=== PATIENT | male | born 1975 ===

== ENCOUNTER 2018-08-22 07:30 | Inpatient (IN) | payer OTHER ==
[2018-08-01 09:01] VITALS: BMI 29.1
[2018-08-22] MEDS ORDERED: Absorbable Gelatin Sponge Size 100 ONE (08:17)
[2018-08-22] MEDS ORDERED: Vancomycin 1 g Inj ONE (08:17)
[2018-08-22] MEDS ORDERED: ceFAZolin IV 1 gm in Dextrose 2 GM/100 ML BAG IVPB ONE (08:17)
[2018-08-22] MEDS ORDERED: Lidocaine/Epinephrine 1% 1:100000 10 ML IJ ONE ×2 (08:18→11:05)
[2018-08-22] MEDS ORDERED: Thrombin Topical 5,000 Int Units Spray Kit ONE (08:18)
[2018-08-22] MEDS ORDERED: Bacitracin 50,000 UNIT in Sodium Chloride 0.9% Irrig 1,000 ML IR SCH (08:30)
[2018-08-22] MEDS ORDERED: Propofol 10 mg/ml 1,000 MG/100 ML VIAL ONE ×2 (09:43→12:02)
[2018-08-22] MEDS ORDERED: Propofol 10 mg/ml Inj (20 ML) ONE (10:15)
[2018-08-22] MEDS ORDERED: Midazolam 2 MG/2 ML VIAL ONE (10:15)
[2018-08-22] MEDS ORDERED: Succinylcholine Chloride 20 mg/ml Syr (5 ml) IV ONE (10:16)
[2018-08-22] MEDS ORDERED: White Petrolatum/Mineral Oil Ophth Oint(3.5 gm) ONE (10:40)
[2018-08-22] MEDS ORDERED: ceFAZolin IV 1 gm in Dextrose 1 GM/50 ML BAG IVPB ONE (11:12)
[2018-08-22] MEDS: Bupivacaine Liposomal Inj 20 ml INFIL ONE ×2 (13:40→14:00)
[2018-08-22] MEDS: Bupivacaine 0.5% Inj(30mL) IJ ONE ×2 (13:41→14:00)
[2018-08-22] MEDS ORDERED: Bacitracin 500 Units/gm Oint Foilpak UD ONE (14:12)
[2018-08-22] MEDS ORDERED: HYDROmorphone 0.5 mg/0.5 ml ISec IVP PRN (14:54)
[2018-08-22] MEDS ORDERED: Morphine Monoject Barrel PCA 1mg/ml IV PRN (14:56)
[2018-08-22] MEDS: HYDROmorphone 0.5 mg/0.5 ml ISec IVP PRN ×2 (16:00→16:25)
[2018-08-22] MEDS: Potassium Ch 20mEq in D5-1/2NS 1,000 ML IV SCH (18:30)
[2018-08-23] MEDS: Potassium Ch 20mEq in D5-1/2NS 1,000 ML IV SCH ×3 (02:26→22:48)
--- NOTE | 2018-08-23 06:05 | OP ---
PROCEDURE DATE: 08/22/2018 PREOPERATIVE DIAGNOSIS: Lumbar disk derangements with chronic low back pain. POSTOPERATIVE DIAGNOSIS: Lumbar disk derangements with chronic low back pain with bilateral L5 spondylolisthesis and gross instability. PROCEDURE: L4 through S1 decompression, fixation and fusion. SURGEON: Oscar Gaffney MD CO-SURGEON: Natalio Saba MD ANESTHESIA: General endotracheal. ESTIMATED BLOOD LOSS: 1000 mL, 500 mL returned via Cell Saver. COMPLICATIONS: None. JUSTIFICATION: The patient is status post an accident, ever since when he is suffering with severe low back pain. The patient denied any pain radiating to his lower extremities. Imaging workup with MRI documented severe collapse of the L5-S1 disk. There was a mild disk derangement but with bilateral foraminal stenosis at L4-L5. The patient failed conservative treatment. He was offered the possibility of operative intervention via decompression, fixation, and fusion. The nature of this procedure, the rationale behind it, alternatives, potential risks and complications, realistic chance of success and recovery time were discussed with him at length. All his questions were answered. He fully understood all the above and elected to proceed as offered. DESCRIPTION OF PROCEDURE: The patient was taken to the operating room, hooked up to neurophysiological monitoring, carefully intubated and anesthetized, placed on the OR table on a Jaden frame in a prone position. Care was taken to protect the face, eyes, endotracheal tube, and all bony prominences. The entire low back region was first scrubbed with acetone and scrubbed, painted, and draped in usual sterile manner. Incision localized with lateral fluoroscopy and made overlying the spinous process of L3 down to the sacrum. Bovie cautery was used to incise the fascia, strip the paraspinal muscles off the spinous process and lamina of L4, L5, and the sacrum. Almost immediately, we encountered surprisingly the L5 lamina was essentially floating. There was a gross instability when dissecting out the L5 pars heading towards the transverse process. We immediately noted complete fracture through both pars bilaterally. This was not recognized on the MR imaging. The patient never actually had a CAT scan. In any case, the exposure was widened out laterally bilaterally to expose the L4-L5 transverse process bilaterally, and the sacral ala. The patient really had copious amounts of bleeding, fairly abnormal for this exposure. Bleeding was controlled with Bovie and bipolar cautery and thrombinated powdered Gelfoam. At this point, bone harvestation was performed. A 5-gauge trocar was inserted directly into the right superior posterior iliac crest. Approximately 120 mL of marrow was aspirated. This was then spun down to obtain the bone marrow mesenchymal cells which were then later used in the bone fusion. The decompression was begun by removing the L5 lamina with a Leksell rongeur. As indicated, this was disconnected and floating. Care was taken to protect the thecal sac at all times. We then removed the inferior two-thirds of the L4 lamina predominately with the Leksell, the high-speed drill, and various size Kerrison. The decompression was then widened out laterally bilaterally to perform a generous medial facetectomy of the L4-L5 level and again at L5-S1, we essentially lifted the medial facet which was disconnected directly off the canal after the and after the ligament to lift it up with a rongeur, this was done bilaterally. Again, bleeding was controlled throughout with bipolar cautery and thrombinated Gelfoam. At this point, we recognized that undoubtedly overwhelmingly the majority of the patient's pain was coming from the L5-S1 instability, and although we had entertained the ideas of doing a diskectomy and interbody fusion at L4-L5, we felt this was really not necessary. We did expose the disk bilaterally to ensure there was no significant herniation, which certainly was not. We definitely performed generous foraminotomies bilaterally of the exiting L4 and L5 nerve roots. At L5, because of the spondylolysis, there was a markedly narrowed foramen in a combination with severe collapse in the sagittal plane. We did take multiple bites with a 3 mm Kerrison of the foramen decompressing the exiting L5 nerve root as best as possible. At this point, we performed decortication of all the lateral elements which included again the transverse processes, lateral pars, facet and the sacral ala. At this point, we placed the pedicular screws, technique was used to identify the pedicular entrance visually and fluoroscopically, drilling the cortical bone, passing a gearshift down the barrel of the pedicle into the vertebral body, sounding the passage way with a ball-tip probe to ensure there was no breach and then placing the appropriate-sized screw. Additionally, gearshift and screws were all stimulated with electric current while monitoring lower extremity EMG. Using this technique, we placed 6 diameter screws bilaterally at L4 and L5 of varying length and 7 diameter 40 mm length screws bilaterally at S1. No screw elicited any EMG activity below 20 mA, and final x-ray of both lateral and AP demonstrated excellent position of all screws. We then placed the appropriate-sized titanium luis into the three screw head receptacles on each side, placed locking nuts and torque-wrenched it tight, and lastly, placed the appropriate-sized cross connector and torque-wrenched in connection site tight as well. We assured that there was no bleeding or bony material, foreign matter, etc., in the canal. A layer of powdered Gelfoam followed by a layer of solid Gelfoam was placed in the posterior epidural space. Final x-ray confirmed excellent position of the entire construct. We then placed all bone grafting material. This included mesenchymal cell impregnated collagen hydroxyapatite sponges, additional allografts, bone matrix proteins as well as decompression all liberally packed into the posterolateral gutters to achieve the fusion. At this point, we placed a 15-Sudanese drain in the posterior epidural space. It was tunneled out with a separate stab incision and sutured in place. The muscle was reapproximated using interrupted 0 Vicryl and the fascia was closed using a tight interrupted 0 Vicryl stitch. The wound was copiously irrigated with antibiotic solution. Some local anesthetic was infiltrated into the muscle. The subcu was closed using two layers of 2-0 Vicryl, the skin was closed with perlita. Bacitracin ointment and a heavy dressing was placed. The patient was turned back onto a supine position on the stretcher, easily extubated, noted moving all groups of his lower extremities with good strength on his way to the recovery room. All counts were correct. There were no complications. Oscar Gaffney MD
[2018-08-23 07:02] LABS: MEAN CELL VOLUME 89.1 fL (80.0-94.0); MEAN CORPUSCULAR HGB CONC 34.8 g/dL (33.0-37.0); MEAN PLATELET VOLUME 9.3 fL (7.2-11.7); RBC 3.92 Mil/uL (4.40-5.90); RED CELL DISTRIBUTION WIDTH 13.4 % (11.5-14.5); WHITE BLOOD COUNT 6.9 K/uL (4.8-10.8)
[2018-08-23 07:05] LABS: HEMOGLOBIN 12.2 g/dL (12.0-18.0)
[2018-08-23 07:55] LABS: BLOOD UREA NITROGEN 18 mg/dL (9-20); CALCIUM 8.1 mg/dl (8.6-10.4); GFR NON-AFRICAN AMERICAN > 60
[2018-08-23] MEDS ORDERED: Pneumococcal 23-Valent Vaccine IM ONE (10:00)
--- NOTE | 2018-08-23 10:52 | RAD ---
PROCEDURE: HISTORY: As Above COMPARISON: None TECHNIQUE: Total continuous fluoroscopic time utilized during the procedure: 68.6 seconds. Total dose 40.01 mGy FINDINGS: Submitted images from the current procedure: 11 please refer to the physician's notes performing the procedure. IMPRESSION: Less than 1 hour fluoroscopic time utilized during performance of the procedure
--- NOTE | 2018-08-23 11:01 | CP.PCM.PN ---
Subjective - Date & Time of Evaluation Date of Evaluation: 08/23/18 Time of Evaluation: 10:58 - Subjective Subjective: SPNE - POD #1 Pt OOB in chair. Seen by PT earlier but felt "dizzy" so no amb attempted. They will return this afternoon. Voiding via buckley. No flatus yet. Taking po. Using DYNAMOMETER TUNER. VSS. Afebrile. Moving all extremities. Neuro grossly intact. Plan: Continue to mobilize as dorian. He lives on first floor so no stairs. Will d/c buckley now and d/c DYNAMOMETER TUNER in am. Objective - Vital Signs/Intake and Output Vital Signs (last 24 hours): Temp Pulse Resp BP Pulse Ox 98.2 F 63 18 110/68 99 08/23/18 08:00 08/23/18 08:00 08/23/18 08:00 08/23/18 08:00 08/23/18 08:00 Intake and Output: 08/23/18 08/23/18 06:59 18:59 Intake Total 1415 Output Total 770 Balance 645 - Medications Medications: Current Medications Acetaminophen (Tylenol 325mg Tab) 650 mg PO Q6 PRN PRN Reason: Fever >100.4 F Docusate Sodium (Colace) 100 mg PO BID [facility] Last Admin: 08/23/18 10:44 Dose: 100 mg Ferrous Sulfate (Feosol) 325 mg PO DAILY [facility] Last Admin: 08/23/18 10:44 Dose: 325 mg Hydromorphone/Sodium Chloride (Dilaudid Wood [employer] Hardware Outfitter) 6 mg IV Q4H PRN; Protocol PRN Reason: Pain, severe (8-10) Last Admin: 08/23/18 10:21 Dose: 6 mg Potassium Chloride/Dextrose/Sod Cl (Potassium Chl 20 Meq In D5-1/2ns) 1,000 mls @ 110 mls/hr IV .Q9H6M [facility] Last Admin: 08/23/18 02:26 Dose: 110 mls/hr - Labs Labs: 08/23/18 06:45 08/23/18 06:45
[2018-08-24] MEDS: Potassium Ch 20mEq in D5-1/2NS 1,000 ML IV SCH ×2 (03:00→05:39)
--- NOTE | 2018-08-24 06:23 | OP ---
PROCEDURE DATE: 08/22/2018 PREOPERATIVE DIAGNOSES: 1. Foraminal stenosis, L4-5. 2. Disk derangement, L4-5, L5-S1. FINAL DIAGNOSES: 1. Large central herniated disk, L5-S1. 2. Foraminal stenosis, L4-5. 3. Disk derangement, L4-5, L5-S1. 4. Spondylolysis L5-S1 with gross instability. OPERATIONS: 1. Posterolateral lumbar fusion, L4-S1. 2. Decompressive laminectomy, L4-S1. 3. Use of segmented spinal instrumentation. 4. Use of autograft by means of bone marrow aspiration. SURGEON: Natalio Saba MD CO-SURGEON: Oscar Gaffney MD. ANESTHESIA General endotracheal tube intubation. DESCRIPTION OF PROCEDURE: The patient was brought to the operating room. General anesthesia was achieved. Intravenous antibiotics were administered and spinal cord monitoring leads were placed throughout the patient's body. Real time monitoring was done by a termite control technician in the room. Remote monitoring done by a physician as well. Sequential compression boots were placed to each of the patient's legs. Once the patient had received his antibiotics, a Medrano catheter was inserted. The patient was then gently transferred onto the operating table and placed prone on a Jaden frame, keeping his abdomen free from pressure anteriorly. Care was taken to protect the elbows and knees from pressure points. A sterile drape was used to seal off the patient's perineal region from the operative field, and his back was scrubbed and sterilely prepped and draped. The level of the incision was noted under fluoroscopy, infiltrated with lidocaine with epinephrine. An incision was made sharply in the midline, taking out subcutaneous tissue using sharp and blunt dissection. Hemostasis achieved using electrocautery. The fascia was divided, stripped laterally off the spinous processes and lamina out to the level of the facet joints and transverse processes of L4 and L5 as well as sacral ala on each side. Soft tissues attachments were cleared using Boyer elevators and electrocautery. Fluoroscopic views confirmed we are at the appropriate levels. On testing, one could see a pars defect at L5 and just on pulling of the spinous process, there was gross instability with floating lamina there. This had not been recognized on his preoperative studies. Therefore, this obviously necessitated even more so during the fusion. A Leksell rongeur was used to remove the spinous process and lamina at the two levels to thin it down and then the laminectomy completed in a caudocephalad fashion using Kerrison rongeurs. This was taken out lateral on each side and foraminotomies done where he had significant foraminal narrowing until we could easily pass a [place] tool out at each level on each side. The patient had an excessive amount of bleeding throughout the surgery. His pressure was maintained in appropriate level, and he was not on any medications pre-operatively that would cause anticoagulation but it was felt more prudent not to attempt to do an interbody fusion at L4-5 and risk causing even more bleeding and just proceed with a posterolateral fusion. No interbody fusion was planned at 5-1 due to significant collapse of that disc. After completion of the laminectomy, we then proceeded with the fusion. A high-speed drill was used to decorticate the C4-5, was left at the 5-1 facet joints on each side. The transverse processes as well as sacral ala were decorticated as well. It should be noted that prior to laminectomy, a trocar was placed in the posterior right ilium and 120 mL of bone marrow aspirate was obtained. This had been sterilely passed off to the termite control technician who processed it through the harvest system and return the collected mesenchymal stem cells to the OR table. The stem cells were then used to soak strips and cubes of Conform hydroxyapatite sponge as well as process through the IC chamber. The patient's laminar bone along with the IC chamber bone Optium putty were combined to make a bone grafting substrate. Thrombinated Gelfoam powder was used for hemostasis at the marrow donor site. Under fluoroscopic guidance, the drill was used to create the entry point for the right L4 pedicle, and the gearshift used to create a channel through the pedicle. A bony integrity was confirmed with a ball-tip probe, and a 6 x 50 mm Expedium screw was inserted. In similar fashion on the left side, the drill was used to locate the entry point under fluoroscopy, and then a gearshift tool, used to create the channel through the pedicle. Once the bony integrity confirmed, a 45 mm x 6 Expedium screw was inserted. Stimulation of the gearshift tool as well as the shank and top of each screw revealed no electrophysiologic abnormalities. We then went down the L5 level where again under fluoroscopic guidance on the left side, the drill was used to create the entry point and the gearshift tool used to create the channel through the pedicle. Once the bony integrity confirmed, a 6 x 50 mm expedient screw was inserted. The same technique was used on the right side with the drill, gearshift tool, and ball-tip probe, and another 50 mm x 6 screw was inserted. Again stimulation revealed no abnormalities. We then placed the final screw at the S1 level, binding it up proximally with the previously two plate screws on each side and then locating in terms of medial lateral and then locating superior inferiorly under fluoroscopic guidance. Again the drill, gearshift tool, ball-tip probe were used, and 40 mm x 7 screws inserted on each side. Again stimulation of the gearshift tool and the screws themselves revealed no electrophysiologic abnormalities. AP view was done as well which showed good position of the hardware. Precut 65 mm lordotic rods were used to connect the three screws on each side. The midline was copiously irrigated with antibiotic solution. Hemostasis achieved with bipolar cautery as well as thrombinated Gelfoam powder. The bone grafting substrate was placed lateral to the rods to bridge the decorticated transverse processes to the sacral ala. The rods was secured to the screws with caps and appropriately tightened and torqued. A #7 matrix cross-link was applied to add rotational stability and this was appropriately tightened and torqued as well. Final AP and lateral view showed excellent position of the construct. A large piece of solid Gelfoam was used to cover the exposed neural elements. A size 15-Martiniquais SUMAN drain was placed in the wound due to his excessive bleeding during the case. The wounds closed in layers with interrupted sutures of 0 Vicryl for the muscle and fascia. The subcutaneous tissue was then copiously irrigated with antibiotic solution. A 40 mL combination of Marcaine and Exparel were injected in the paraspinal tissues to help with postoperative pain relief. The subcutaneous tissue was closed in layers with interrupted sutures of 2-0 Vicryl and skin was approximated with perlita. Bacitracin ointment and sterile dressing were applied. The patient was gently transferred back onto his bed in a supine position. He was awakened and extubated. He was taken to recovery room in stable condition. He tolerated the procedure well. He was actively moving all extremities at time of his transfer and no permanent electrophysiologic abnormalities were noted at the completion of the case. Estimated blood loss was 1000 mL. He received 2 liters of crystalloid during the operation as well as 500 mL back from the Cell Saver. He had a urine output of 125 mL over the course of the operation. Natalio Saba MD AVE
[2018-08-24] MEDS ORDERED: Oxycodone/Acetaminophen 5/325 mg Tab PO PRN (10:00)
[2018-08-24] MEDS: oxyCODONE 20 mg ER Tab (oxyCONTIN) PO SCH ×2 (10:05→23:46)
--- NOTE | 2018-08-24 10:58 | CP.PCM.PN ---
Subjective - Date & Time of Evaluation Date of Evaluation: 08/24/18 Time of Evaluation: 10:54 - Subjective Subjective: POD 2 doing well amb with PT c/o some pain R lat thigh no numbness/dysesthesia etc 5/5 throughout sens groosly intact wound c and d drain removed P cont mobilization dc planning Objective - Vital Signs/Intake and Output Vital Signs (last 24 hours): Temp Pulse Resp BP Pulse Ox 99.5 F 74 20 107/64 96 08/24/18 08:00 08/24/18 08:00 08/24/18 08:00 08/24/18 08:00 08/24/18 08:00 Intake and Output: 08/24/18 08/24/18 06:59 18:59 Intake Total 2280 Output Total 750 Balance 1530 - Medications Medications: Current Medications Acetaminophen (Tylenol 325mg Tab) 650 mg PO Q6 PRN PRN Reason: Fever >100.4 F Ascorbic Acid (Vitamin C 500 Mg Tab) 500 mg PO DAILY [facility] Bacitracin (Bacitracin) 0 gm TOP DAILY [facility] Docusate Sodium (Colace) 100 mg PO BID [facility] Last Admin: 08/24/18 10:04 Dose: 100 mg Ferrous Sulfate (Feosol) 325 mg PO TID [facility] Hydromorphone/Sodium Chloride (Dilaudid Metal Framer) 6 mg IV Q4H PRN; Protocol PRN Reason: Pain, severe (8-10) Last Admin: 08/24/18 05:34 Dose: 6 mg Potassium Chloride/Dextrose/Sod Cl (Potassium Chl 20 Meq In D5-1/2ns) 1,000 mls @ 110 mls/hr IV .Q9H6M [facility] Last Admin: 08/24/18 05:39 Dose: 110 mls/hr Oxycodone HCl (Oxycontin Extended Release Tab) 20 mg PO Q12 [facility] Last Admin: 08/24/18 10:05 Dose: 20 mg Oxycodone/Acetaminophen (Percocet 5/325 Mg Tab) 1 tab PO Q4H PRN PRN Reason: Pain, Mild (1-3) Stop: 08/27/18 10:01 - Labs Labs: 08/23/18 06:45 08/23/18 06:45
[2018-08-24] MEDS: Bacitracin Ointment 30 GM TUBE TOP SCH (13:24)
[2018-08-25 04:41] VITALS: O2SAT 97
[2018-08-25 08:38] VITALS: BP 112/74; PULSE 73; RESP 18; TEMP 99
--- NOTE | 2018-08-25 09:42 | CP.PCM.PN ---
Subjective - Date & Time of Evaluation Date of Evaluation: 08/25/18 Time of Evaluation: 09:39 - Subjective Subjective: SPINE - POD #3 Pt resting in bed. Amb 130' w PT yesterday. States he only has pain with sitting. VSS. Tmax 100. 99 now. Neuro grossly intact. Plan: Discharge to home today. Call office for f/u appt Objective - Vital Signs/Intake and Output Vital Signs (last 24 hours): Temp Pulse Resp BP Pulse Ox 99.0 F 73 18 112/74 97 08/25/18 07:20 08/25/18 07:20 08/25/18 07:20 08/25/18 07:20 08/25/18 07:20 Intake and Output: 08/25/18 08/25/18 06:59 18:59 Intake Total 420 Output Total 2200 Balance -1780 - Medications Medications: Current Medications Acetaminophen (Tylenol 325mg Tab) 650 mg PO Q6 PRN PRN Reason: Fever >100.4 F Last Admin: 08/24/18 23:59 Dose: 650 mg Ascorbic Acid (Vitamin C 500 Mg Tab) 500 mg PO DAILY [facility] Last Admin: 08/24/18 13:26 Dose: 500 mg Bacitracin (Bacitracin) 0 gm TOP DAILY [facility] Last Admin: 08/24/18 13:24 Dose: 1 applic Docusate Sodium (Colace) 100 mg PO BID [facility] Last Admin: 08/24/18 17:57 Dose: 100 mg Ferrous Sulfate (Feosol) 325 mg PO TID [facility] Last Admin: 08/24/18 17:57 Dose: 325 mg Oxycodone HCl (Oxycontin Extended Release Tab) 20 mg PO Q12 [facility] Last Admin: 08/24/18 23:46 Dose: 20 mg Oxycodone/Acetaminophen (Percocet 5/325 Mg Tab) 1 tab PO Q4H PRN PRN Reason: Pain, Mild (1-3) Stop: 08/27/18 10:01 - Labs Labs: 08/23/18 06:45 08/23/18 06:45
[2018-08-25] MEDS: oxyCODONE 20 mg ER Tab (oxyCONTIN) PO SCH (09:43)
[2018-08-25] MEDS: Bacitracin Ointment 30 GM TUBE TOP SCH (09:44)
[2018-08-25] MEDS ORDERED: Pantoprazole 40 mg EC Tab PO SCH (10:00)
== END 2018-08-25 14:27 | disposition home or self-care (01) | DRG 460 ==
LOC: C.9S 08:28 → C.6T 18:24
PROVIDERS: ADMIT Neurological Surgery; ATTEND Neurological Surgery
PROC: 0SG3071 Fusion of Lumbosacral Joint with Autologous Tissue Substitute, Posterior Approach, Posterior Column, Open Approach (ICD-10-PCS; 2018-08-22)
PROC: 00NY0ZZ Release Lumbar Spinal Cord, Open Approach (ICD-10-PCS; 2018-08-22)
PROC: 07DR3ZZ Extraction of Iliac Bone Marrow, Percutaneous Approach (ICD-10-PCS; 2018-08-22)
PROC: 0SG0071 Fusion of Lumbar Vertebral Joint with Autologous Tissue Substitute, Posterior Approach, Posterior Column, Open Approach (ICD-10-PCS; principal; 2018-08-22 10:00)
DX: M51.27 Other intervertebral disc displacement, lumbosacral region (principal); M48.061 Spinal stenosis, lumbar region without neurogenic claudication; M43.07 Spondylolysis, lumbosacral region; M43.17 Spondylolisthesis, lumbosacral region; G89.29 Other chronic pain